=== PATIENT | female | born 1960 | race African-American/Black ===

== ENCOUNTER → 2016-11-30 | Outpatient (CLI) | payer OTHER ==
[2016-07-02 18:36] VITALS: BP 138/72
[2016-11-30 11:12] LABS: CREATININE,URINE 195.79 mg/dL (29-226); MICROALBUMIN,URINE 4.8 mg/L
[2016-11-30 11:14] LABS: HEMOGLOBIN A1C 6.3 % (4.5-6.2)
[2016-11-30 11:14] LABS: BASOPHILS % (AUTO) 0.4 % (0.2-1.0); EOSINOPHILS # (AUTO) 0.1 x10^3/uL (0.0-0.2); EOSINOPHILS % (AUTO) 1.2 % (0.9-2.9); HEMATOCRIT 39.9 % (36.0-47.0); HEMOGLOBIN 13.4 g/dL (12.0-16.0); LYMPHOCYTES # (AUTO) 3.7 X10^3/uL (1.3-2.9); MEAN CORPUSCULAR HEMOGLOBIN 27.5 pg (27.0-34.0); MEAN CORPUSCULAR HGB CONC 33.5 g/dL (33.0-35.0); MEAN CORPUSCULAR VOLUME 81.9 fL (80.0-100.0); MEAN PLATELET VOLUME 9.3 fL (7.4-11.0); MONOCYTES # (AUTO) 0.5 x10^3/uL (0.3-0.8); MONOCYTES % (AUTO) 7.1 % (0.0-13.0); NEUTROPHILS # (AUTO) 2.6 x10^3/uL (2.2-4.8); NEUTROPHILS % (AUTO) 37.3 % (42.0-75.0); PLATELET COUNT 210 X10^3/uL (150.0-450.0); RED BLOOD COUNT 4.88 X10^6/uL (3.5-5.4); WHITE BLOOD COUNT 6.9 X10^3/uL (3.6-10.0)
[2016-11-30 11:20] LABS: ALANINE AMINOTRANSFERASE 15 Units/L (12-78); ALBUMIN 3.2 g/dL (3.4-5.0); ALKALINE PHOSPHATASE 64 Units/L (46-116); ASPARTATE AMINO TRANSFERASE 14 Units/L (15-37); BLOOD UREA NITROGEN 7 mg/dL (7-18); CALCIUM 8.3 mg/dL (8.5-10.1); CARBON DIOXIDE 26.6 mmol/L (21-32); CHLORIDE 109 mmol/L (98-107); COR CA(FOR HYPOALB) 8.9 mg/dL (8.5-10.1); CREATININE 0.81 mg/dL (0.55-1.02); FREE T4 (FREE THYROXINE) 0.99 ng/dL (0.76-1.46); GLUCOSE 100 mg/dL (65-99); SODIUM 143 mmol/L (136-145); TOTAL PROTEIN 6.8 g/dL (6.4-8.2); TSH (3RD GENERATION) 4.029 uIU/mL (0.358-3.74); eGFR BLACK RACES > 60 (>60); eGFR NON BLACK RACES > 60 (>60)
[2016-11-30 11:44] LABS: CKMB % 1.3 % (<4); CREATINE KINASE 79 Units/L (26-192); CREATINE KINASE MB < 1.0 ng/mL (0-4.0); TROPONIN I < 0.02 ng/mL (0-1.5)
--- NOTE | 2016-11-30 12:23 | RAD ---
HISTORY: Left-sided chest pain Study: PA and lateral views of the chest Comparison: 11/30/2016 Findings: The lungs are clear. No consolidation. There are no pleural effusions. The perfecto and cardiomediastinal silhouette appear normal. IMPRESSION: 1. No radiographic evidence of an acute cardiopulmonary process. Reported By:
== END ==
LOC: LAB 10:23
PROVIDERS: ATTEND Nurse Practitioner Family
DX: I10 Essential (primary) hypertension (principal); E11.21 Type 2 diabetes mellitus with diabetic nephropathy; E03.8 Other specified hypothyroidism; R07.89 Other chest pain
CPT/HCPCS: 36415; 71020; 80053; 82043; 82550; 82552; 82553; 83036; 84439; 84443; 84481; 84484; 85025

== ENCOUNTER → 2016-12-13 | Outpatient (CLI) | payer OTHER ==
[2016-07-02 18:36] VITALS: BP 138/72
== END ==
LOC: LAB 14:15
PROVIDERS: ATTEND Nurse Practitioner Family
DX: E87.6 Hypokalemia (principal)
CPT/HCPCS: 36415; 84132

== ENCOUNTER → 2017-01-15 | Outpatient (CLI) | payer OTHER ==
[2016-07-02 18:36] VITALS: BP 138/72
[2017-01-15 08:06] LABS: BASOPHILS # (AUTO) 0.1 X10^3/uL (0.0-0.1); BASOPHILS % (AUTO) 0.9 % (0.2-1.0); EOSINOPHILS # (AUTO) 0.1 x10^3/uL (0.0-0.2); EOSINOPHILS % (AUTO) 1.1 % (0.9-2.9); HEMATOCRIT 41.6 % (36.0-47.0); HEMOGLOBIN 13.7 g/dL (12.0-16.0); LYMPHOCYTES # (AUTO) 3.3 X10^3/uL (1.3-2.9); MEAN CORPUSCULAR HEMOGLOBIN 27.2 pg (27.0-34.0); MEAN CORPUSCULAR HGB CONC 32.9 g/dL (33.0-35.0); MEAN CORPUSCULAR VOLUME 82.7 fL (80.0-100.0); MEAN PLATELET VOLUME 9.2 fL (7.4-11.0); MONOCYTES # (AUTO) 0.5 x10^3/uL (0.3-0.8); MONOCYTES % (AUTO) 7.6 % (0.0-13.0); NEUTROPHILS # (AUTO) 2.7 x10^3/uL (2.2-4.8); NEUTROPHILS % (AUTO) 40.4 % (42.0-75.0); PLATELET COUNT 225 X10^3/uL (150.0-450.0); RED BLOOD COUNT 5.03 X10^6/uL (3.5-5.4); RED CELL DISTRIBUTION WIDTH 13.9 % (11.6-16.5); WHITE BLOOD COUNT 6.6 X10^3/uL (3.6-10.0)
[2017-01-15 08:27] LABS: ALANINE AMINOTRANSFERASE 17 Units/L (12-78); ALBUMIN 3.3 g/dL (3.4-5.0); ALKALINE PHOSPHATASE 68 Units/L (46-116); ASPARTATE AMINO TRANSFERASE 16 Units/L (15-37); BLOOD UREA NITROGEN 9 mg/dL (7-18); CALCIUM 8.2 mg/dL (8.5-10.1); CARBON DIOXIDE 28.1 mmol/L (21-32); CHLORIDE 107 mmol/L (98-107); COR CA(FOR HYPOALB) 8.8 mg/dL (8.5-10.1); CREATININE 0.81 mg/dL (0.55-1.02); FREE T4 (FREE THYROXINE) 0.99 ng/dL (0.76-1.46); GLUCOSE 101 mg/dL (65-99); SODIUM 141 mmol/L (136-145); TOTAL PROTEIN 6.9 g/dL (6.4-8.2); TSH (3RD GENERATION) 3.273 uIU/mL (0.358-3.74); eGFR BLACK RACES > 60 (>60); eGFR NON BLACK RACES > 60 (>60)
[2017-01-15 08:42] LABS: ERYTHROCYTE SEDIMENTATION RATE 7 MM/HOUR (0-20)
== END ==
LOC: LAB 07:41
PROVIDERS: ATTEND Nurse Practitioner Family
DX: E03.8 Other specified hypothyroidism (principal); I10 Essential (primary) hypertension; R22.1 Localized swelling, mass and lump, neck
CPT/HCPCS: 36415; 80053; 84439; 84443; 84481; 85025; 85652; 86140

== ENCOUNTER → 2017-01-16 | Outpatient (CLI) | payer OTHER ==
[2016-07-02 18:36] VITALS: BP 138/72
== END ==
LOC: LAB 08:59
PROVIDERS: ATTEND Internal Medicine Gastroenterology
DX: K59.1 Functional diarrhea (principal); B96.81 Helicobacter pylori [H. pylori] as the cause of diseases classified elsewhere
CPT/HCPCS: 87338

== ENCOUNTER → 2017-01-29 | Outpatient (CLI) | payer OTHER ==
[2016-07-02 18:36] VITALS: BP 138/72
--- NOTE | 2017-01-29 10:10 | US ---
HISTORY: Neck mass Study: Thyroid sonogram Comparison: None Technique: Multiple grayscale sonographic images were obtained. Findings: The right lobe measured 3.5 x 1.9 x 1.7 centimeters, the isthmus 2.7 millimeters, and the left lobe 3 .7 by 1.5 x 1 centimeter. Multiple bilateral sub 0.5 centimeter cysts and nodules are present. There are no dominant nodules. No masses are identified. IMPRESSION: Multiple bilateral sub 0.5 centimeter thyroid cysts and nodules which do not meet the criteria for fi ne needle aspiration Reported By:
== END | disposition home or self-care (01) | DRG 607 ==
LOC: RAD 09:07
PROVIDERS: ATTEND Nurse Practitioner Family
DX: R22.1 Localized swelling, mass and lump, neck (principal); E04.2 Nontoxic multinodular goiter
CPT/HCPCS: 76536

== ENCOUNTER → 2017-05-13 | Outpatient (CLI) | payer OTHER ==
[2016-07-02 18:36] VITALS: BP 138/72
[2017-05-13 08:15] LABS: BASOPHILS # (AUTO) 0.1 X10^3/uL (0.0-0.1); BASOPHILS % (AUTO) 0.9 % (0.2-1.0); EOSINOPHILS # (AUTO) 0.1 x10^3/uL (0.0-0.2); HEMATOCRIT 42.6 % (36.0-47.0); HEMOGLOBIN 14.2 g/dL (12.0-16.0); LYMPHOCYTES # (AUTO) 3.5 X10^3/uL (1.3-2.9); LYMPHOCYTES % (AUTO) 47.5 % (21.0-51.0); MEAN CORPUSCULAR HEMOGLOBIN 27.2 pg (27.0-34.0); MEAN CORPUSCULAR HGB CONC 33.4 g/dL (33.0-35.0); MEAN CORPUSCULAR VOLUME 81.4 fL (80.0-100.0); MEAN PLATELET VOLUME 9.1 fL (7.4-11.0); MONOCYTES # (AUTO) 0.6 x10^3/uL (0.3-0.8); MONOCYTES % (AUTO) 8.6 % (0.0-13.0); NEUTROPHILS # (AUTO) 3.1 x10^3/uL (2.2-4.8); PLATELET COUNT 248 X10^3/uL (150.0-450.0); RED BLOOD COUNT 5.23 X10^6/uL (3.5-5.4); RED CELL DISTRIBUTION WIDTH 13.8 % (11.6-16.5); WHITE BLOOD COUNT 7.3 X10^3/uL (3.6-10.0)
[2017-05-13 08:19] LABS: HEMOGLOBIN A1C 5.4 % (4.5-6.2)
[2017-05-13 08:31] LABS: MICROALBUMIN,URINE 13.4 mg/L
[2017-05-13 08:54] LABS: CREATININE,URINE 402.27 mg/dL (29-226)
[2017-05-13 09:14] LABS: ALANINE AMINOTRANSFERASE 17 Units/L (12-78); ALBUMIN 3.6 g/dL (3.4-5.0); ALKALINE PHOSPHATASE 74 Units/L (46-116); ASPARTATE AMINO TRANSFERASE 14 Units/L (15-37); BLOOD UREA NITROGEN 13 mg/dL (7-18); CALCIUM 8.9 mg/dL (8.5-10.1); CARBON DIOXIDE 24.3 mmol/L (21-32); CHLORIDE 107 mmol/L (98-107); CHOL/HDL RATIO 4.4 (0.0-5.0); CHOLESTEROL 200 mg/dL (0-200); CREATININE 0.86 mg/dL (0.55-1.02); FREE T4 (FREE THYROXINE) 1.01 ng/dL (0.76-1.46); HDL CHOLESTEROL 45 mg/dL (40-60); SODIUM 143 mmol/L (136-145); TOTAL PROTEIN 7.3 g/dL (6.4-8.2); TRIGLYCERIDES 106 mg/dL (0-150); TSH (3RD GENERATION) 4.289 uIU/mL (0.358-3.74); eGFR BLACK RACES > 60 (>60); eGFR NON BLACK RACES > 60 (>60)
== END ==
LOC: LAB 07:52
PROVIDERS: ATTEND Nurse Practitioner Family
DX: E03.8 Other specified hypothyroidism (principal); E11.21 Type 2 diabetes mellitus with diabetic nephropathy
CPT/HCPCS: 36415; 80053; 80061; 82043; 83036; 84439; 84443; 84481; 85025

== ENCOUNTER 2017-06-22 02:02 | Emergency (ER) | payer OTHER ==
[2017-06-22 02:14] VITALS: BMI 32.2
[2017-06-22] MEDS ORDERED: NORFLEX INJ ONE (02:36)
[2017-06-22] MEDS ORDERED: TORADOL 60 MG VIAL ONE (02:36)
[2017-06-22] MEDS ORDERED: TORADOL 60 MG VIAL IM ONE (02:37)
[2017-06-22] MEDS ORDERED: NORFLEX INJ IM ONE (02:37)
--- NOTE | 2017-06-22 02:37 | DR.FBACK ---
HPI - Time Seen Time seen: 02:25 - PCP Primary Care Physician: KATHLEEN HAYNES - HPI Comment HPI Comment: PAIN STARTED YESTERDAY AND GOT WORSE TONIGHT. PAIN LEFT FLANK AREA. NO DYSURIA OR HEMATURIA. HISTORY LUMBER DISC DISEASE WITH COMPREESIVE AREA AROUND L4. NO RECENT TRAUMA OR LIFTING. - Complaint Chief Complaint Doctor Comments: LOWER BACK PAIN. Chief Complaint:: "STARTED HURTING IN MY LOWER BACK AND IT COMES AROUND TO MY LOWER STOMACH." PT POINTING TO LEFT SIDE. PATIENT DENIES ANY HEMATURIA. - Reviewed Nurses Notes Review: Yes - Source History Provided: Patient, EMS - Mode of Arrival Mode of Arrival: EMS - Timing Onset of Chief Complaint: 06/21/17 - Duration Duration: Constant Duration: Days - Location Back Pain Location: Left, Lower, BACK, Lumbar Radiation To: Left, Thigh - Severity Severity: Moderate - Quality Quality: Aching, Sharp - Context Onset: Spontaneous Circumstance: Spontaneous - Modifying Factors Worsened By: Movement, Twisting, Breathing, Walking - Associated Signs and Symptoms Back Pain Symptoms: Nausea PMH - PMH Past Medical History: Yes Past Medical History: Dyslipidemia, GERD, Hypertension, Hypothyroidism Past Surgical History: Yes Surgical History: Appendectomy, Hysterectomy, Ortho Surgery Past Surgical History Comment: LEFT KNEE, RIGHT FOOT. LUMPECTOMY - Family History History of Family Medical Conditions: Yes Family Medical History: Cancer, Hypertension - Social History Type of Tobacco Use: Cigarettes Alcohol Use: None Do you use any recreational Drugs:: No Lives With: Family Lives Where: Home - infectious screening Have you traveled outside the country in the last 6 months?: No Isolation: Standard ROS - Review of Systems Constitutional: No Symptoms Reported Eyes: No Symptoms Reported ENTM: No Symptoms Reported Respiratoy: No Symptoms Reported Cardiovascular: No Symptoms Reported Gastrointestinal/Abdominal: No Symptoms Reported Genitourinary: No Symptoms Reported. negative: Dysuria, Frequency, Hematuria Neurological: Tingling Musculoskeletal: Back Pain, Muscle Pain, Back Integumentary: No Symptoms Reported Hematologic/Lymphatic: No Symptoms Reported Endocrine: No Symptoms Reported All Other Systems: Reviewed and Negative PE - Vitals Vital Signs: Temp Pulse Pulse Resp BP BP BP 06/22/17 04:16 58 L 18 134/61 06/22/17 03:55 83 18 134/61 06/22/17 02:35 18 101/71 06/22/17 02:09 97.0 F L 72 18 136/63 01/30/17 18:35 138/72 138/72 06/16/14 08:00 109/52 Pulse Ox 06/22/17 04:16 98 06/22/17 03:55 99 06/22/17 02:35 06/22/17 02:09 95 07/02/16 18:35 06/16/14 08:00 - General Limitations: No Limitations General Appearance: Alert - Head Head Exam: Normal Inspection - Eyes Eye exam: Normal Appearance - ENT ENT Exam: Normal External Ear Exam - Chest Chest Inspection: Symmetric Chest Wall Rise - Respiratory Respiratory Exam: Normal Lung Sounds Bilat Respiratory Exam: Bilateral Clear to Auscultation - Abdominal Exam Abdominal Exam: Normal Bowel Sounds, Soft. negative: Tenderness - Genitourinary External Exam: Female: Deferred : Speculum Exam (Female): Deferred : Bimanual Exam (female): Deferred - Extremities Extremities Exam: Normal Inspection - Back Back Exam: (L) CVA Tenderness, Muscle Spasm, Paraspinal Tenderness - Neurological Neurological Exam: Alert, Oriented X3 - Psychiatric Psychiatric Exam: Anxious - Skin Skin Exam: Normal Color MDM - Additional Information Additional Information Obtained From: Family - Differential Diagnosis Differential Diagnosis: DJD, Musculoskeletal Pain, Strain Course - Treatment Treatment: SEE ORDERS. IM TORADOL AND NORFLEX, PAIN IMPROVING. - Education/Counseling Education/Counseling: Patient, Family, Education Educated On: Treatment, Diagnosis, Needs for Follow Up ROR - Labs Reviewed Laboratory: Specimen Type Clean catch urine 06/22/17 02:28 Urine Color Yellow (YELLOW) 06/22/17 02:28 Urine Appearance Clear (CLEAR) 06/22/17 02:28 Urine pH 5.0 (5.0 - 8.0) 06/22/17 02:28 Ur Specific [place] 1.025 (1.000-1.030) 06/22/17 02:28 Urine Protein 1+ (NEGATIVE) 06/22/17 02:28 Urine Glucose (UA) Negative (NEGATIVE) 06/22/17 02:28 Urine Ketones 1+ (NEGATIVE) 06/22/17 02:28 Urine Occult Blood 2+ (NEGATIVE) 06/22/17 02:28 Urine Nitrite Negative (NEGATIVE) 06/22/17 02:28 Urine Bilirubin Negative (NEGATIVE) 06/22/17 02:28 Urine Urobilinogen 1+ (NORMAL) 06/22/17 02:28 Ur Leukocyte Esterase 1+ (NEGATIVE) 06/22/17 02:28 Urine RBC 2-4 /HPF (NEGATIVE) 06/22/17 02:28 Urine WBC 0-2 /HPF (NEGATIVE) 06/22/17 02:28 Ur Squamous Epith Cells Rare /HPF (NEGATIVE) 06/22/17 02:28 Calcium Oxalate Crystal Few /HPF (NEGATIVE) 06/22/17 02:28 Urine Bacteria Negative /HPF (NEGATIVE) 06/22/17 02:28 Urine Mucus Moderate /HPF (NEGATIVE) 06/22/17 02:28 Ur Culture Indicated? No/not indicated 06/22/17 02:28 - XRAY XRAY Interpreted by: Radiologist XRAY Findings: REPORT DISCUSS WITH PATIENT. CT SIMILAR TO PREVIOUS MRI. - Diagnosis Discharge Problem: Bulging lumbar disc Back pain Qualifiers: Back pain location: low back pain Chronicity: acute Back pain laterality: left Sciatica presence: with sciatica Sciatica laterality: sciatica of left side Qualified Code(s): M54.42 - Lumbago with sciatica, left side - Discharge Plan Disposition: 01 HOME, SELF-CARE Condition: Stable - Follow ups/Referrals Follow ups/Referrals: NFD,None [Primary Care Provider] - 3 days - Instructions Instructions: Back Pain, Adult, Fuye-nd-Erep Additional Instructions: RETURN TO ED IF WORSE. CONTINUE HOME MEDS.
[2017-06-22 02:42] LABS: BILIRUBIN,URINE NEGATIVE (NEGATIVE); BLOOD/HEMOGLOBIN,URINE 2+ (NEGATIVE); GLUCOSE, URINE NEGATIVE (NEGATIVE); KETONES,URINE 1+ (NEGATIVE); LEUKOCYTE ESTERASE ,URINE 1+ (NEGATIVE); NITRITES,URINE NEGATIVE (NEGATIVE); PROTEIN,URINE 1+ (NEGATIVE); UROBILINOGEN,URINE 1+ (NORMAL)
[2017-06-22 03:03] LABS: APPEARANCE,URINE CLEAR (CLEAR); BACTERIA,URINE NEGATIVE /HPF (NEGATIVE); CALCIUM OXALATE CRYSTALS,UR FEW /HPF (NEGATIVE); COLOR,URINE YELLOW (YELLOW); MUCUS,URINE MODERATE /HPF (NEGATIVE); SQUAMOUS EPITHELIAL CELL,UR RARE /HPF (NEGATIVE)
--- NOTE | 2017-06-22 03:26 | CT ---
CT lumbar spine without contrast Indication: Lower back pain without trauma Technique: Helical CT images of the lumbar spine were obtained without IV contrast. Reformatted image s in the coronal and sagittal planes were also generated for review. Comparison: MRI 05/10/2015 Findings: Vertebral body heights and alignment are normal. No acute fracture or subluxation is identi fied. There is very mild multilevel facet arthropathy, most significant caudally. There is a mildly p rominent broad-based posterior disc bulge at L4-L5 which results in mild canal stenosis. Within the l imitations of a noncontrast CT, no additional significant compressive disc disease is identified at a ny level. The visualized SI joints are normal. Mild vascular calcifications are noted. The remaining unenhanced paraspinal soft tissues are grossly unremarkable. Impression: Mild multilevel facet arthropathy and mild broad-based posterior disc bulge at L4-L5, which results i n mild canal stenosis. If clinically warranted, consider MRI for further evaluation. Reported By:
[2017-06-22 03:56] VITALS: BP 134/61
== END 2017-06-22 04:17 | disposition home or self-care (01) ==
LOC: ER 02:02
DX: M51.26 Other intervertebral disc displacement, lumbar region (principal); M54.42 Lumbago with sciatica, left side
CPT/HCPCS: 72131; 81001; 96372; 99283; 99284; J1885; J2360

== ENCOUNTER → 2017-06-24 | Outpatient (CLI) | payer OTHER ==
[2016-07-02 18:36] VITALS: BP 138/72
--- NOTE | 2017-06-24 11:55 | MG ---
HISTORY: SCREENING Comparison: 06/19/2016 FINDINGS: Bilateral CC and MLO projections of the right and left breast were obtained. Scattered fibroglandula r tissue is seen to be present. No significant architectural distortion, mass or clustered microcalc ifications can be observed to suggest malignancy. No skin thickening or nipple retraction is appreci ated. No pathological lymphadenopathy can be identified. IMPRESSION: NO RADIOGRAPHIC EVIDENCE OF MALIGNANCY. ACR CATEGORY: 1 - NEGATIVE EXAM. FOLLOW-UP EXAM 1 YEAR. Diagnostic CAD was utilized and reviewed. * 0 (ZERO) - ASSESSMENT INCOMPLETE; ADDITIONAL IMAGING IS NEEDED. * 1/1 (ONE) - NEGATIVE. * 2/II (TWO) - BENIGN FINDINGS. * 3/III (THREE) - PROBABLY BENIGN FINDING; SHORT INTERVAL FOLLOW-UP SUGGESTED. * 4/IV (FOUR) - SUSPICIOUS ABNORMALITY; BIOPSY SHOULD BE CONSIDERED. * 5/V - HIGHLY SUSPICIOUS OF MALIGNANCY; BIOPSY SHOULD BE PERFORMED. A NEGATIVE X-RAY REPORT SHOULD NOT DELAY BIOPSY IF A DOMINANT OR CLINICALLY SUSPICIOUS MASS IS PRESENT; 4 TO 8 PERCENT OF CANCERS ARE NOT IDENTIFIED BY X-RAY. A NEGA TIVE REPORT MAY REINFORCE THE CLINICAL IMPRESSION. ADENOSIS AND DENSE BREASTS MAY OBSCURE AN UNDERLY ING NEOPLASM. Reported By:
== END ==
LOC: RAD 08:03
PROVIDERS: ATTEND Nurse Practitioner Family
DX: Z12.31 Encounter for screening mammogram for malignant neoplasm of breast (principal)
CPT/HCPCS: 77067

== ENCOUNTER → 2017-08-03 | Outpatient (CLI) | payer OTHER ==
[2017-08-03 09:52] LABS: T4 (THYROXINE) 8.7 ug/dL (4.7-13.3); TSH (3RD GENERATION) 2.149 uIU/mL (0.358-3.74)
== END ==
LOC: LAB 08:41
PROVIDERS: ATTEND Psychiatry & Neurology Neurology
DX: E03.8 Other specified hypothyroidism (principal)
CPT/HCPCS: 36415; 84436; 84443; 84480

== ENCOUNTER → 2017-08-09 | Outpatient (CLI) | payer OTHER ==
--- NOTE | 2017-08-09 12:14 | US ---
History: Thyroid nodule Exam: Thyroid ultrasound Comparison: 01/29/2017 Technique: Multiple grayscale and color flow Doppler images of the thyroid gland were obtained. Findings: The right lobe measures 4.4 x 1.5 x 2 cm. The left lobe measures 3.7 x 1 x 1.7 cm. There is mild hete rogeneity throughout both lobes . There are small 3 mm cyst along the lower pole both lobes which are unchanged. There is a 6 x 3 mm hypoechoic nodule along the upper pole posteriorly on the right and t here is a smaller 3 mm nodule along the mid polar region . There is an very ill-defined 11 x 8 mm hyp oechoic nodule along the lower pole posteriorly on the right which measured 8 x 5 mm previously. The margins are ill-defined. The isthmus measures 4 mm. IMPRESSION: Mild multinodular goiter with an 11 mm hypoechoic solid nodule inferiorly on the right which may have slightly enlarged but is ill-defined. Suggest continued follow-up to assure stability . Reported By:
== END ==
LOC: RAD 11:00
PROVIDERS: ATTEND Nurse Practitioner Family
DX: E04.1 Nontoxic single thyroid nodule (principal)
CPT/HCPCS: 76536

== ENCOUNTER 2017-08-29 07:18 | Day surgery (SDC) | payer OTHER ==
[2017-08-29] MEDS ORDERED: D5 LR 1000 ML 1,000 ML IV ONE (07:23)
[2017-08-29] MEDS ORDERED: DIPRIVAN VIAL 20 ML ONE (09:01)
[2017-08-29 09:32] VITALS: BP 132/62
== END 2017-08-29 09:35 | disposition home or self-care (01) ==
LOC: SURG1 07:18
PROVIDERS: ATTEND Internal Medicine Gastroenterology
PROC: 0DJD8ZZ Inspection of Lower Intestinal Tract, Via Natural or Artificial Opening Endoscopic (ICD-10-PCS; principal; 2017-08-29 08:30)
PROC: 0DBP8ZX Excision of Rectum, Via Natural or Artificial Opening Endoscopic, Diagnostic (ICD-10-PCS; principal; 2017-08-29 08:30)
DX: Z12.11 Encounter for screening for malignant neoplasm of colon (principal); K63.5 Polyp of colon; K57.30 Diverticulosis of large intestine without perforation or abscess without bleeding; K64.0 First degree hemorrhoids; Z86.010 Personal history of colon polyps
CPT/HCPCS: A4217; J3490; J7120

== ENCOUNTER → 2017-09-13 | Outpatient (CLI) | payer OTHER ==
[2017-08-29 09:32] VITALS: BP 132/62
[2017-09-13 08:49] LABS: BASOPHILS # (AUTO) 0.1 X10^3/uL (0.0-0.1); BASOPHILS % (AUTO) 1.2 % (0.2-1.0); EOSINOPHILS % (AUTO) 0.6 % (0.9-2.9); HEMATOCRIT 41.8 % (36.0-47.0); HEMOGLOBIN 13.9 g/dL (12.0-16.0); LYMPHOCYTES # (AUTO) 3.2 X10^3/uL (1.3-2.9); LYMPHOCYTES % (AUTO) 40.9 % (21.0-51.0); MEAN CORPUSCULAR HEMOGLOBIN 27.5 pg (27.0-34.0); MEAN CORPUSCULAR HGB CONC 33.3 g/dL (33.0-35.0); MEAN CORPUSCULAR VOLUME 82.6 fL (80.0-100.0); MEAN PLATELET VOLUME 8.8 fL (7.4-11.0); MONOCYTES # (AUTO) 0.6 x10^3/uL (0.3-0.8); MONOCYTES % (AUTO) 7.6 % (0.0-13.0); NEUTROPHILS # (AUTO) 3.9 x10^3/uL (2.2-4.8); NEUTROPHILS % (AUTO) 49.7 % (42.0-75.0); PLATELET COUNT 245 X10^3/uL (150.0-450.0); RED BLOOD COUNT 5.07 X10^6/uL (3.5-5.4); RED CELL DISTRIBUTION WIDTH 13.9 % (11.6-16.5); WHITE BLOOD COUNT 7.8 X10^3/uL (3.6-10.0)
[2017-09-13 09:23] LABS: CREATININE,URINE 172.39 mg/dL (29-226); MICROALBUMIN,URINE 4.4 mg/L
[2017-09-13 09:28] LABS: ALANINE AMINOTRANSFERASE 15 Units/L (12-78); ALBUMIN 3.3 g/dL (3.4-5.0); ALKALINE PHOSPHATASE 75 Units/L (46-116); ASPARTATE AMINO TRANSFERASE 13 Units/L (15-37); BLOOD UREA NITROGEN 15 mg/dL (7-18); CALCIUM 8.9 mg/dL (8.5-10.1); CARBON DIOXIDE 27.5 mmol/L (21-32); CHLORIDE 109 mmol/L (98-107); CHOL/HDL RATIO 4.2 (0.0-5.0); CHOLESTEROL 203 mg/dL (0-200); COR CA(FOR HYPOALB) 9.5 mg/dL (8.5-10.1); CREATININE 0.88 mg/dL (0.55-1.02); HDL CHOLESTEROL 48 mg/dL (40-60); SODIUM 144 mmol/L (136-145); TOTAL PROTEIN 7.2 g/dL (6.4-8.2); TRIGLYCERIDES 69 mg/dL (0-150); TSH (3RD GENERATION) 3.776 uIU/mL (0.358-3.74); eGFR BLACK RACES > 60 (>60); eGFR NON BLACK RACES > 60 (>60)
== END ==
LOC: LAB 08:28
PROVIDERS: ATTEND Nurse Practitioner Family
DX: E11.9 Type 2 diabetes mellitus without complications (principal); M85.88 Other specified disorders of bone density and structure, other site; I10 Essential (primary) hypertension; E78.4 Other hyperlipidemia; E03.8 Other specified hypothyroidism
CPT/HCPCS: 36415; 80053; 80061; 82043; 82306; 84443; 85025

== ENCOUNTER → 2017-09-25 | Outpatient (CLI) | payer OTHER ==
[2017-08-29 09:32] VITALS: BP 132/62
--- NOTE | 2017-09-25 09:16 | RAD ---
HISTORY: Low back pain. No history of trauma. Study: AP and lateral lumbar spine Comparison: 04/06/2015 CT scan 06/22/2017 Findings: Five lumbar type vertebra are present. Spina bifida occulta is noted at T12, unchanged. Mild facet arthropathy is noted at L3/L4 with moderate at L4/L5 and L5/S1. The lateral view demonstrates normal curvature. Mild disc space narrowing is present at L5/S1. Minimal anterior spurring is present at several levels. There is a radiopaque foreign body projected within the fatty tissues of the right g luteal region measuring approximately 3 cm in length by 8 mm in width. This appears to be soft tissu e calcification and it is unchanged. IMPRESSION: 1. Lumbar spondylosis as described above. 2. No significant change is noted when compared to the prior examination. 3. No acute bony abnormalities are identified. Reported By:
--- NOTE | 2017-09-25 09:16 | RAD ---
HISTORY: Neck and low back pain, chronic but no trauma. Study: Three-view cervical spine Comparison: 02/10/2012 Findings: No fracture or subluxation is seen. There is again narrowing of the disc space at C5-6 with marginal spondylosis. Odontoid is unremarkable. IMPRESSION: Degenerative disc disease again seen at C5-6 with marginal spondylosis. No fracture or subluxation is seen. Reported By:
== END | disposition home or self-care (01) | DRG 552 ==
LOC: RAD 08:46
PROVIDERS: ATTEND Nurse Practitioner Family
DX: M54.5 Low back pain (principal); M50.322 Other cervical disc degeneration at C5-C6 level; M47.892 Other spondylosis, cervical region; M47.896 Other spondylosis, lumbar region
CPT/HCPCS: 72040; 72100

== ENCOUNTER → 2017-09-26 | Outpatient (CLI) | payer OTHER ==
[2017-08-29 09:32] VITALS: BP 132/62
--- NOTE | 2017-09-26 16:22 | MRI ---
HISTORY: Low back pain Study: MRI lumbar spine without contrast Comparison: CT lumbar spine performed on 06/22/2017 and MRI performed on 05/10/2015 Technique: Multiplanar multi-sequence MRI of the lumbar spine was obtained. Sagittal T1, sagittal T2 , and stir weighted images, axial T1, and axial T2 images were obtained. Findings: Imaging of the lumbar spine demonstrates normal vertebral alignment. There is no spondylolisthesis. V ertebral body height is maintained throughout. No acute or chronic compression fracture is visualized . Disc space height is maintained throughout. There are minimal degenerative endplate changes anterio rly at multiple levels within the lumbar spine. Within the left L5 pedicle there is very mild reactiv e edema due to adjacent advanced facet arthropathy. The conus terminates at the L2 level. Evaluation of the pre and paravertebral soft tissues is unremarkable. Incidental note is made of multiple hepati c cysts. T12 -- L1: The T12-L1 level is unremarkable. L1 -- L2: At the L1-L2 level there is facet hypertrophy without significant canal stenosis or neurofo raminal compromise. L2 -- L3: At the L2-L3 level there is facet hypertrophy and ligamentum flavum thickening, resulting i n no significant canal stenosis or neuroforaminal compromise. L3 -- L4: At the L3-L4 level there is advanced facet hypertrophy and ligamentum flavum thickening, re sulting in no significant canal stenosis or neuroforaminal compromise. L4 -- L5: At the L4-L5 level there is advanced facet hypertrophy and ligamentum flavum thickening as well as broad-based disc ridging, resulting in mild canal stenosis as well as mild bilateral neurofor aminal compromise. L5 -- S1: At the L5-S1 level there is advanced facet hypertrophy without significant canal stenosis o r neuroforaminal compromise. IMPRESSION: 1. Multilevel advanced facet hypertrophy and minimal degenerative disc disease as detailed above, mos t significant at the L4-L5 level, where there is mild canal stenosis as well as mild bilateral neurof oraminal compromise. Reported By:
--- NOTE | 2017-09-30 08:49 | MRI ---
HISTORY: Neck pain Study: MRI cervical spine without contrast Comparison: Cervical radiographs performed on 09/25/2017 Technique: Multiplanar multisequence MRI of the cervical spine was obtained utilizing standard [facility] mental protocol. Findings: Imaging of the cervical spine demonstrates loss of the normal cervical lordosis which is likely secon sabino to patient positioning and/or muscle spasm. There is very mild, grade 1, anterolisthesis of C4 o n C5, likely secondary to facet arthropathy and degenerative disc disease at this level. Moderate los s of disc space height is evident at the C5-C6 level with associated advanced degenerative endplate c hange. There is also minimal reactive edema posteriorly at the C5-C6 level secondary to degenerative endplate change. Cervical cord signal is normal throughout. Evaluation of the pre and paravertebral s oft tissues is unremarkable. The visualized posterior fossa is grossly unremarkable as well. C2 -- C3: The C2-C3 level is unremarkable. C3 -- C4: At the C3-C4 level there is mild facet hypertrophy and minimal uncovertebral spurring witho ut significant canal stenosis or neuroforaminal compromise. C4 -- C5: At the C4-C5 level there is a mild broad-based disc osteophyte complex as well as left unco vertebral spurring and facet hypertrophy, resulting in no significant canal stenosis or neuroforamina l compromise. C5 -- C6: At the C5-C6 level there is a broad-based disc osteophyte complex as well as uncovertebral spurring and minimal facet hypertrophy, resulting in minimal bilateral neuroforaminal compromise but no significant canal stenosis. C6 -- C7: At the C6-C7 level there is minimal uncovertebral spurring without significant canal stenos is or neuroforaminal compromise. C7 -- T1: At the C7-T1 level there is very mild facet hypertrophy without significant canal stenosis or neuroforaminal compromise. IMPRESSION: 1. Multilevel mild degenerative disc disease and facet arthropathy as detailed above, most significan t at the C5-C6 level, there is minimal bilateral neuroforaminal compromise. Reported By:
== END ==
LOC: RAD 13:29
PROVIDERS: ATTEND Nurse Practitioner Family
DX: M54.5 Low back pain (principal); M51.36 Other intervertebral disc degeneration, lumbar region; M50.322 Other cervical disc degeneration at C5-C6 level; R20.2 Paresthesia of skin
CPT/HCPCS: 72141; 72148

== ENCOUNTER → 2017-10-07 | Outpatient (CLI) | payer OTHER | END | disposition home or self-care (01) | DRG 93 | LOC: RT 09:27 | PROVIDERS: ATTEND Nurse Practitioner Family | DX: R20.0 Anesthesia of skin (principal); R20.2 Paresthesia of skin | CPT/HCPCS: 95910; 95911 ==

== ENCOUNTER 2019-02-07 03:06 | Observation (INO) ==
[2019-02-07] MEDS ORDERED: TORADOL 60 MG VIAL IM ONE (04:40)
[2019-02-07] MEDS ORDERED: PROTONIX TAB 40 MG PO ONE (04:40)
[2019-02-07] MEDS ORDERED: LEVSIN/MAALOX/LIDOC VISC PO ONE (04:40)
--- NOTE | 2019-02-07 04:49 | DR.EXTPAIN ---
HPI - Time seen Time seen: 04:38 - PCP Primary Care Physician: GRACIELA - Complaint/Symptoms Chief Complaint Doctor Comments: Patient states she has been having epigastric pain that radiates to the RUQ and to her back with burning for the past month. States she has gone to the emergency room in [place] four times and they told her she had gall stones and to see a surgeon. States she has contacted her doctor, Dr. Sebastian and she was suppose to set her up an appointment with a surgeon but she has not called her back. States she talked with her doctor yesterday about her surgery appointment but they have not made one yet. She she has progblems when she eats and gets full quickly with nausea and had episode of vomiting last week but none recently. States she has had an endoscope and they told her she had an ulcer and she is taking ulcer medicines but she do not know the name of the medicines. She is suppose to be on a special diet. She smokes 1/2 pack cigarettes daily but denies alcohol or drug usage. She denies diarrhea, constipation or guy. States the pain is 10 of 10 at times but presently it is 4 of 10. States the pain is sharp worst in the epigastric area. She denies chest pain or SOB or any recent trauma. Chief Complaint:: " IM HAVING A PROBLEM WITH MY GALLBLADDER IM HURTING IN MY UPPER STOMACH ALL THE WAY AROUND TO MY RIGHT SIDE AND I GOT A BURNING IN MY RIGHT SIDE I DONE BEEN TO THE [facility] AND THEY TOLD ME THERE WAS NOTHING THEY COULD DO FOR IT." - Nurses notes reviewed Nurses Notes Review: Yes - Source History Provided: Patient - Mode of arrival Mode of Arrival: Ambulatory - Timing Onset of Chief Complaint: 02/07/19 - Context History of: None - Associated signs and symptoms Associated Signs and Symptoms: Pain, Abdominal Pain PMH - PMH Past Medical History: Yes Past Medical History: Arthritis, CHF, Diabetes, Dyslipidemia, GERD, Hypertension, Hypothyroidism Past Surgical History: Yes Surgical History: Appendectomy, Hysterectomy, Ortho Surgery - Family History History of Family Medical Conditions: Yes Family Medical History: Cancer, Hypertension - Social History Alcohol Use: None Do you use any recreational Drugs:: No - infectious screening Have you traveled outside the country in the last 6 months?: No ROS - Review of Systems Constitutional: No Symptoms Reported Eyes: No Symptoms Reported ENTM: No Symptoms Reported Respiratoy: No Symptoms Reported. negative: See HPI, Productive Cough, Non- Productive Cough, Moist Cough, Dry Cough, Hacking Cough, Barking Cough, Brassy Cough, Orthopnea, Short of Breath, Stridor, Wheezing, Hemoptysis, Other Cardiovascular: No Symptoms Reported Gastrointestinal/Abdominal: No Symptoms Reported, Abdominal Pain, Nausea. negative: See HPI, Constipation, Diarrhea, Vomiting, Food Intolerance, Other Genitourinary: No Symptoms Reported. negative: See HPI, Discharge, Dysuria, Frequency, Hematuria, Pain, Bleeding, Other Neurological: No Symptoms Reported Musculoskeletal: No Symptoms Reported Integumentary: No Symptoms Reported Hematologic/Lymphatic: No Symptoms Reported. negative: See HPI, Anemia, Blood Clots, Easy Bleeding, Easy Bruising, Swollen Glands, Lymphadenopathy, Other Endocrine: No Symptoms Reported Psychiatric: No Symptoms Reported. negative: See HPI, Anxiety, Depression, Hallucinations, Excessive crying, Suicidal, Other PE - General Limitations: No Limitations General Appearance: Alert, In No Apparent Distress - Head Head Exam: Normal Inspection, Atraumatic, Normocephalic - Eyes Eye exam: Normal Appearance, PERRL, EOMI. negative: Scleral Icterus, Conjunctival Injection, Nystagmus, Miosis, Mydrasis, Periorbital Swelling, Per iorbital Tenderness, Other - ENT ENT Exam: Normal Exam, Normal Oropharynx, Normal External Ear Exam, Mucous Membranes Moist, TM's Normal Bilaterally - Neck Neck Exam: Normal Inspection, Full ROM, Trachea Midline. negative: Tenderness, Meningismus, Lymphadenopathy, Thyromegaly, Other - Chest Chest Inspection: Normal Inspection, Symmetric Chest Wall Rise. negative: Tenderness, Rash, Abscess, Other - Respiratory Respiratory Exam: Normal Lung Sounds Bilat Respiratory Exam: Bilateral Clear to Auscultation - Cardiovascular Cardiovascular Exam: Regular Rate, Normal Rhythm, Irregular Rhythm. negative: Bradycardia, Tachycardia, Normal Heart Sounds, Systolic Murmur, Diastolic M urmur, Rubs, Gallop, Clicks, JVD, +S1, +S2, +S3, +S4, Other - Abdominal Exam Abdominal Exam: Normal Inspection, Normal Bowel Sounds, Soft, Tenderness (epigastric tenderness) Abdominal Tenderness: RUQ, Epigastrium, Moderate - Extremities Extremities Exam: Normal Inspection, Full ROM, Normal Capillary Refill. negative: Tenderness, Edema, Joint Swelling, Calf Tenderness, Other - Upper Extremities Shoulder Exam: Normal Inspection, Full ROM. negative: Tenderness, Swelling, Abrasion, Laceration, Ecchymosis, Deformity, Crepitus, Dislocation, Erythema, Tenderness over AC Joint, Other Arm Exam: Normal Inspection, Full ROM. negative: Tenderness, Swelling, Abrasion, Laceration, Ecchymosis, Deformity, Crepitus, Erythema, Other Elbow Exam: Normal Inspection, Full ROM. negative: Tenderness, Swelling, Abrasi on, Laceration, Ecchymosis, Deformity, Crepitus, Dislocation, Erythema, Effusion, Pain w/ pronation, Pain w/ Spuination, Tenderness over Radial Head, Other Forearm Exam: Normal Inspection, Full ROM Hand Exam: Normal Inspection, Full ROM. negative: Tenderness, Swelling, Abrasion, Laceration, Ecchymosis, Skin Avulsion, Deformity, Crepitus, Erythema, Dislocation, Amputation, Nail Avulsion, Subungual Hematoma, Other Neuromotor Exam: Normal Exam Neurosensory Exam: Normal Exam Hand Tendon Exam: Flexor Digitorium Profundus (Location) (normal) Upper Ext. Vascular Exam: Capillary Refill (normal), Radial Pulse (normal) - Lower Extremities Hip/Pelvis Exam: Normal Inspection, Full ROM Upper Leg Exam: Normal Inspection, Full ROM Knee Exam: Normal Inspection, Full ROM Lower Leg Exam: Normal Inspection, Full ROM Ankle Exam: Normal Inspection, Full ROM Foot/Toe Exam: Normal Inspection, Full ROM Neurovascular/Tendon Exam: Normal Capillary Refill Gait Exam: Observed and Normal - Back Back Exam: Normal Inspection, Full ROM. negative: Tenderness, (R) CVA Tenderness, (L) CVA Tenderness, Muscle Spasm, Paraspinal Tenderness, Vertebral Tenderness, Rashes, (R) Sciatic Notch Tenderness, (L) Sciatic Notch Tendern, (R) Straight Leg Raise, (L) Straight Leg Raise, Other - Neurological Neurological Exam: Alert, Oriented X3, CN II-XII Intact, Normal Gait, Reflexes N ormal - Psychiatric Psychiatric Exam: Normal Affect, Normal Mood - Skin Skin Exam: Warm, Dry, Intact, Normal Color Type of Lesion: negative: Rash, Abscess, Laceration, Foreign Body, Bite/Sting, Abrasion, Other Distribution: negative: Generalized, Involves Palms/Soles, Head, Face, Neck, Thorax, Chest, Back, Abdomen, Genitals, LUE, LLE, RUE, RLE, Other Description: negative: Size, Tenderness, Erythematous, Swelling, Macular, Papular, Vesicular, Blisters, Cofluent, Bullous, Petechial, Purpuric, Urticarial, Crusting, Discharge, Fluctuant, Indurated, Other - Vital Signs Vitals: Temperature 97.9 F Pulse Rate 68 Respiratory Rate 18 Blood Pressure [Left Arm] 152/75 Blood Pressure [Right Arm] 152/75 Blood Pressure 163/80 O2 Sat by Pulse Oximetry 98 Course - Consultation Called: 07:12 Call Returned: 07:12 (Dr. George to admit) - Education/Counseling Education/Counseling: Patient, Family Educated On: Treatment, Diagnosis, Needs for Follow Up ROR - Labs Reviewed Laboratory Results Reviewed?: Yes (All labs and x-ray results reviewed and discussed with pataient) Result Diagrams: 02/07/19 05:00 02/07/19 05:00 - XRAY XRAY Interpreted by: Radiologist (CT abdomen: Dilated gallbladder with gallstones and questionable wall thickening. Acute cholecystitits in not excluded.) - Labs Reviewed Laboratory: WBC 7.7 X10^3/uL (3.6-10.0) 02/07/19 05:00 RBC 4.96 X10^6/uL (3.5-5.4) 02/07/19 05:00 Hgb 14.0 g/dL (12.0-16.0) 02/07/19 05:00 Hct 42.4 % (36.0-47.0) 02/07/19 05:00 MCV 85.4 fL (80.0-100.0) 02/07/19 05:00 MCH 28.2 pg (27.0-34.0) 02/07/19 05:00 MCHC 33.0 g/dL (33.0-35.0) 02/07/19 05:00 RDW 13.6 % (11.6-16.5) 02/07/19 05:00 Plt Count 215 X10^3/uL (150.0-450.0) 02/07/19 05:00 MPV 8.8 fL (7.4-11.0) 02/07/19 05:00 Neut % (Auto) 48.9 % (42.0-75.0) 02/07/19 05:00 Lymph % (Auto) 43.3 % (21.0-51.0) 02/07/19 05:00 [place] % (Auto) 6.7 % (0.0-13.0) 02/07/19 05:00 Eos % (Auto) 0.9 % (0.9-2.9) 02/07/19 05:00 Baso % (Auto) 0.2 % (0.2-1.0) 02/07/19 05:00 Neut # (Auto) 3.7 x10^3/uL (2.2-4.8) 02/07/19 05:00 Lymph # (Auto) 3.3 X10^3/uL (1.3-2.9) H 02/07/19 05:00 [place] # (Auto) 0.5 x10^3/uL (0.3-0.8) 02/07/19 05:00 Eos # (Auto) 0.1 x10^3/uL (0.0-0.2) 02/07/19 05:00 Baso # (Auto) 0.0 X10^3/uL (0.0-0.1) 02/07/19 05:00 Absolute Nucleated RBC 0.0 /100WBC 02/07/19 05:00 Sodium 141 mmol/L (136-145) 02/07/19 05:00 Corrected Sodium TNP 02/07/19 05:00 Potassium 3.7 mmol/L (3.5-5.1) 02/07/19 05:00 Chloride 106 mmol/L (98-107) 02/07/19 05:00 Carbon Dioxide 26.5 mmol/L (21-32) 02/07/19 05:00 BUN 9 mg/dL (7-18) 02/07/19 05:00 Creatinine 0.80 mg/dL (0.55-1.02) 02/07/19 05:00 Est GFR (MDRD) Af Amer > 60 (>60) 02/07/19 05:00 Est GFR (MDRD) Non-Af > 60 (>60) 02/07/19 05:00 Glucose 104 mg/dL (65-99) H 02/07/19 05:00 Calcium 8.7 mg/dL (8.5-10.1) 02/07/19 05:00 Corrected Calcium TNP 02/07/19 05:00 Total Bilirubin 0.20 mg/dL (0.2-1.0) 02/07/19 05:00 AST 9 Units/L (15-37) L 02/07/19 05:00 ALT 8 Units/L (12-78) L 02/07/19 05:00 Alkaline Phosphatase 67 Units/L (46-116) 02/07/19 05:00 Total Protein 6.9 g/dL (6.4-8.2) 02/07/19 05:00 Albumin 3.5 g/dL (3.4-5.0) 02/07/19 05:00 Globulin 3.4 g/dL (2.5-4.5) 02/07/19 05:00 Albumin/Globulin Ratio 1.0 Ratio (1.1-2.1) L 02/07/19 05:00 Amylase 34 Units/L (25-115) 02/07/19 05:00 Lipase 55 Units/L (73-393) L 02/07/19 05:00 Specimen Type Clean catch urine 02/07/19 06:33 Urine Color Pale yellow (YELLOW) 02/07/19 06:33 Urine Appearance Clear (CLEAR) 02/07/19 06:33 Urine pH 6.0 (5.0 - 8.0) 02/07/19 06:33 Ur Specific [place] 1.010 (1.000-1.030) 02/07/19 06:33 Urine Protein Negative (NEGATIVE) 02/07/19 06:33 Urine Glucose (UA) Negative (NEGATIVE) 02/07/19 06:33 Urine Ketones Negative (NEGATIVE) 02/07/19 06:33 Urine Occult Blood Negative (NEGATIVE) 02/07/19 06:33 Urine Nitrite Negative (NEGATIVE) 02/07/19 06:33 Urine Bilirubin Negative (NEGATIVE) 02/07/19 06:33 Urine Urobilinogen Normal (NORMAL) 02/07/19 06:33 Ur Leukocyte Esterase Negative (NEGATIVE) 02/07/19 06:33 Opioid - Opioid Risk Tool Total: 0 Total Score Risk Category: Low Risk - Diagnosis Discharge Problem: Dyspepsia, Hepatic cyst, Hyperglycemia Cholelithiasis Qualifiers: Cholangitis acuity: unspecified acuity Biliary obstruction: without biliary obstruction Abdominal pain Qualifiers: Abdominal location: upper abdomen, unspecified Qualified Code(s): R10.10 - Upper abdominal pain, unspecified Degenerative joint disease Qualifiers: Osteoarthritis type: unspecified - Discharge Plan Disposition: ADMITTED INPATIENT Condition: Stable - Follow ups/Referrals Follow ups/Referrals: QUENTIN HAYNES [Primary Care Provider] - 3 days - Instructions
[2019-02-07] MEDS ORDERED: TORADOL 60 MG VIAL ONE (04:51)
[2019-02-07] MEDS ORDERED: PROTONIX TAB 40 MG ONE (04:51)
[2019-02-07] MEDS ORDERED: LEVSIN/MAALOX/LIDOC VISC ONE (04:51)
[2019-02-07 05:09] LABS: BASOPHILS % (AUTO) 0.2 % (0.2-1.0); EOSINOPHILS # (AUTO) 0.1 x10^3/uL (0.0-0.2); EOSINOPHILS % (AUTO) 0.9 % (0.9-2.9); HEMATOCRIT 42.4 % (36.0-47.0); LYMPHOCYTES # (AUTO) 3.3 X10^3/uL (1.3-2.9); LYMPHOCYTES % (AUTO) 43.3 % (21.0-51.0); MEAN CORPUSCULAR HEMOGLOBIN 28.2 pg (27.0-34.0); MEAN CORPUSCULAR VOLUME 85.4 fL (80.0-100.0); MEAN PLATELET VOLUME 8.8 fL (7.4-11.0); MONOCYTES # (AUTO) 0.5 x10^3/uL (0.3-0.8); MONOCYTES % (AUTO) 6.7 % (0.0-13.0); NEUTROPHILS # (AUTO) 3.7 x10^3/uL (2.2-4.8); NEUTROPHILS % (AUTO) 48.9 % (42.0-75.0); PLATELET COUNT 215 X10^3/uL (150.0-450.0); RED BLOOD COUNT 4.96 X10^6/uL (3.5-5.4); RED CELL DISTRIBUTION WIDTH 13.6 % (11.6-16.5); WHITE BLOOD COUNT 7.7 X10^3/uL (3.6-10.0)
[2019-02-07 05:26] LABS: ALANINE AMINOTRANSFERASE 8 Units/L (12-78); ALBUMIN 3.5 g/dL (3.4-5.0); ALKALINE PHOSPHATASE 67 Units/L (46-116); AMYLASE 34 Units/L (25-115); ASPARTATE AMINO TRANSFERASE 9 Units/L (15-37); BLOOD UREA NITROGEN 9 mg/dL (7-18); CALCIUM 8.7 mg/dL (8.5-10.1); CARBON DIOXIDE 26.5 mmol/L (21-32); CHLORIDE 106 mmol/L (98-107); LIPASE 55 Units/L (73-393); SODIUM 141 mmol/L (136-145); TOTAL PROTEIN 6.9 g/dL (6.4-8.2); eGFR NON BLACK RACES > 60 (>60)
--- NOTE | 2019-02-07 05:37 | CT ---
CT abdomen and pelvis without contrast Indication: Right upper quadrant pain and epigastric pain Comparison: No recent CT Technique: Helical images through the abdomen and pelvis without contrast. Coronal and sagittal reformats provided. Findings: Review of bone windows shows no osseous lesion. Limited images through the lower chest shows no acute abnormality. Abdomen: Scattered hepatic hypodensities are compatible with cyst. Gallstones are seen in the gallbladder. The pancreas, adrenal glands and spleen show no acute abnormality. The stomach and small bowel are normal. No acute colonic abnormality seen. Vasculature shows calcifications. The kidneys show no hydroureteronephrosis or stone Pelvis: The urinary bladder and rectum are normal. Uterus is absent. No adnexal region lesions seen. There is fatty lesion in the right tensor fascia matt. Impression: 1. Dilated gallbladder with gallstones and questionable wall thickening. Acute cholecystitis is not excluded. Recommend ultrasound abdomen 2. Vascular calcifications, spine DJD and right hip lipoma. Reported By:
[2019-02-07 06:39] LABS: BILIRUBIN,URINE NEGATIVE (NEGATIVE); BLOOD/HEMOGLOBIN,URINE NEGATIVE (NEGATIVE); GLUCOSE, URINE NEGATIVE (NEGATIVE); KETONES,URINE NEGATIVE (NEGATIVE); LEUKOCYTE ESTERASE ,URINE NEGATIVE (NEGATIVE); NITRITES,URINE NEGATIVE (NEGATIVE); PROTEIN,URINE NEGATIVE (NEGATIVE); UROBILINOGEN,URINE NORMAL (NORMAL)
[2019-02-07 06:44] LABS: APPEARANCE,URINE CLEAR (CLEAR); COLOR,URINE PALE YELLOW (YELLOW)
[2019-02-07] MEDS ORDERED: ZOSYN VIAL 3.375 GRAMS 3.375 G in NS 100 ML IV + SPIKE MINIBAG* 100 ML IV ONE (07:14)
[2019-02-07] MEDS ORDERED: MORPHINE SULFATE INJ 2 MG INJ IVP PRN (07:17)
[2019-02-07] MEDS ORDERED: PEPCID 20 MG IV PREMIX* 20 MG/50 ML BAG IV PRN (07:17)
[2019-02-07] MEDS ORDERED: ZOFRAN INJ 4 MG VIAL IVP PRN ×2 (07:17→11:46)
[2019-02-07] MEDS ORDERED: NS 100 ML IV + SPIKE MINIBAG* 100 ML ONE (07:18)
[2019-02-07] MEDS ORDERED: ZOSYN VIAL 3.375 GRAMS IV ONE (07:18)
[2019-02-07] MEDS ORDERED: ZOFRAN INJ 4 MG VIAL ONE (08:42)
[2019-02-07] MEDS ORDERED: SUPRANE ONE (08:42)
[2019-02-07] MEDS ORDERED: QUELICIN (OR ANECTINE) ONE (08:42)
[2019-02-07] MEDS ORDERED: DIPRIVAN VIAL ONE (08:42)
[2019-02-07] MEDS ORDERED: NEOSTIGMINE INJ ONE (08:42)
[2019-02-07] MEDS ORDERED: VERSED ONE (08:42)
[2019-02-07] MEDS ORDERED: ROBINUL ONE (08:42)
[2019-02-07] MEDS ORDERED: NORCURON INJ 10 MG VIAL ONE (08:42)
--- NOTE | 2019-02-07 08:58 | RAD ---
Examination: AP chest History: Preop Comparison 07/04/2018 Findings: Continued normal heart size with clear lungs. There is no evidence for mediastinal widening or pleural fluid. Impression: No change; no acute findings. Reported By:
[2019-02-07] MEDS: NS 1/2 + KCL 20 MEQ/L 1,000 ML IV SCH ×4 (09:28→23:37)
[2019-02-07] MEDS ORDERED: BACTROBAN TOPICAL OINT ONE (09:46)
[2019-02-07] MEDS ORDERED: ANCEF 1 GRAM IV PREMIX* 1 G/50 ML BAG IV ONE (09:57)
[2019-02-07] MEDS ORDERED: LR 1000 ML IV 1,000 ML ONE (09:57)
[2019-02-07] MEDS ORDERED: FENTANYL INJ 250 mcg ONE (10:31)
[2019-02-07] MEDS ORDERED: DILAUDID INJ IVP PRN ×2 (11:36→11:46)
--- NOTE | 2019-02-07 11:41 | OR.IMMED ---
Immediate Post-Op Note - Immediate Post-Op Note Pre-Op Diagnosis: acute calculus cholecystitis . Post-Op Diagnosis: acute and chronic calculus cholecystitis . abdominal; adhesion around the GB and umbilicus with several loops of small bowel attached to the abdominal wall . No bowel obstruction . Procedure: laparoscopy , lysis of adhesions , lap fabio . Surgeon/[employer] Brake Coupler: jessica Specimens Removed: GB Drains: NONE Complications: no Condition: Stable
[2019-02-07] MEDS ORDERED: BENADRYL INJ 50 MG VIAL IVP PRN (11:46)
[2019-02-07] MEDS ORDERED: REGLAN INJ 10 MG VIAL IVP PRN (11:46)
[2019-02-07] MEDS ORDERED: PHENERGAN INJ 25 MG IM PRN (11:46)
--- NOTE | 2019-02-07 11:46 | DR.H&P ---
H&P - History & Physical for Day of: H&P Date: 02/07/19 - Chief Complaint Chief Complaint: right side abdominal pain - History of Present Illness History of Present Illness: Patient states she has been having epigastric pain that radiates to the RUQ and to her back with burning for the past month. States she has gone to the emergency room in [place] four times and they told her she had gall stones and to see a surgeon. States she has contacted her doctor, Dr. Sebastian and she was suppose to set her up an appointment with a surgeon but she has not called her back. States she talked with her doctor yesterday about her surgery appointment but they have not made one yet. She she has progblems when she eats and gets full quickly with nausea and had episode of vomiting last week but none recently. States she has had an endoscope and they told her she had an ulcer and she is taking ulcer medicines but she do not know the name of the medicines. She is suppose to be on a special diet. She smokes 1/2 pack cigarettes daily but denies alcohol or drug usage. She denies diarrhea, constipation or guy. States the pain is 10 of 10 at times but presently it is 4 of 10. States the pain is sharp worst in the epigastric area. She denies chest pain or SOB or any recent trauma. Pt had ct abdpelvis in ER revealing Dilated gallbladder with gallstones and questionable wall thickening. Acute cholecystitis is not excluded. Pt was admitted NPO for surgical consult - Past Medical History Past Medical History: Arthritis, CHF, Diabetes, Dyslipidemia, GERD, Hypertension, Hypothyroidism - Past Surgical History Surgical History: Appendectomy, Hysterectomy, Ortho Surgery - Family History Family Medical History: Cancer, Hypertension - Social History Does patient currently use any type of tobacco product: No Have you used tobacco products in the last 12 months: No Type of Tobacco Use: None Does any household member use tobacco: No Alcohol Use: None - Medications Home Medications: No Known Drug Allergies Allergy (Verified 12/15/17 09:36) CONTINUE taking the following medications alendronate 70 mg PO WEEKLY 02/07/19 [History] aspirin 81 mg PO DAILY 02/07/19 [History] atorvastatin 40 mg PO HS 02/07/19 [History] budesonide-formoterol [Symbicort] 2 puff INHALATION BID 02/07/19 [History] carvedilol 6.25 mg PO BID 02/07/19 [History] ezetimibe 10 mg PO DAILY 02/07/19 [History] gabapentin 100 mg PO DIRECTED 02/07/19 [History] hydrochlorothiazide 12.5 mg PO DAILY 02/07/19 [History] levothyroxine 100 mcg PO DAILY 02/07/19 [History] losartan 50 mg PO DAILY 02/07/19 [History] meloxicam 7.5 mg PO DAILY 02/07/19 [History] metformin 500 mg PO DAILY 02/07/19 [History] montelukast 10 mg PO DAILY 02/07/19 [History] nitroglycerin 0.4 mg SUBLINGUAL PRN PRN 02/07/19 [History] omeprazole 40 mg PO DAILY 02/07/19 [History] ondansetron HCl [Zofran] 4 mg PO TID PRN 02/07/19 [History] pantoprazole 40 mg PO DAILY 02/07/19 [History] - Review of Systems Constitutional: Weakness Eyes: No Symptoms Reported ENT: No Symptoms Reported Respiratory: No Symptoms Reported Cardiovascular: No Symptoms Reported Gastrointestinal: Nausea, Vomiting, Abdominal Pain Genitourinary: No Symptoms Reported Musculoskeletal: No Symptoms Reported Skin: No Symptoms Reported Neurological: No Symptoms Reported - Physical Exam Vital Signs: Temperature 97.0 F Pulse Rate [Left] 56 Pulse Rate 57 Respiratory Rate 18 Blood Pressure [Left Arm] 140/64 Blood Pressure [Right Arm] 152/75 Blood Pressure 142/63 O2 Sat by Pulse Oximetry 100 Oriented: Normal Eyes: Normal Ear: Normal Nose: Normal Throat: Normal Respiratory: Clear Throughout Cardiovascular: Normal : Normal Auscultation: Bowel Sounds: Normal Palpation: Normal Tenderness: RUQ Skin: Normal Musculoskeletal: Normal Psychiatric: Anxiety Speech Pattern: Clear, Appropriate - Assessment/Plan (1) Acute cholecystitis Status: Acute (2) GERD (gastroesophageal reflux disease) Status: Chronic Plan: admit NPO, SURGICAL CONSULT. ADMISSON LABS CXR AND EKG. CONFIRM HOME MEDICATION, AM LABS (3) Hypertension Status: Chronic (4) Hypothyroidism Status: Chronic - Allergies Allergies/Adverse Reactions: Allergies Allergy/AdvReac Type Severity Reaction Status Date / Time No Known Drug Allergies Allergy Verified 12/15/17 09:36
[2019-02-07] MEDS ORDERED: D5 1/2 NS 1000 ML 1,000 ML IV SCH (12:00)
[2019-02-07] MEDS ORDERED: NS IRRIGATION 3000 ML ONE (15:12)
[2019-02-07] MEDS ORDERED: STERILE WATER IRRIGATION IR ONE (15:12)
[2019-02-08] MEDS: NS 1/2 + KCL 20 MEQ/L 1,000 ML IV SCH ×2 (02:37→09:53)
[2019-02-08 05:53] LABS: BASOPHILS # (AUTO) 0.1 X10^3/uL (0.0-0.1); EOSINOPHILS # (AUTO) 0.1 x10^3/uL (0.0-0.2); EOSINOPHILS % (AUTO) 1.1 % (0.9-2.9); HEMATOCRIT 37.7 % (36.0-47.0); HEMOGLOBIN 12.5 g/dL (12.0-16.0); LYMPHOCYTES # (AUTO) 2.9 X10^3/uL (1.3-2.9); LYMPHOCYTES % (AUTO) 48.7 % (21.0-51.0); MEAN CORPUSCULAR HEMOGLOBIN 28.1 pg (27.0-34.0); MEAN CORPUSCULAR HGB CONC 33.1 g/dL (33.0-35.0); MONOCYTES # (AUTO) 0.5 x10^3/uL (0.3-0.8); MONOCYTES % (AUTO) 7.6 % (0.0-13.0); NEUTROPHILS # (AUTO) 2.5 x10^3/uL (2.2-4.8); NEUTROPHILS % (AUTO) 41.6 % (42.0-75.0); PLATELET COUNT 181 X10^3/uL (150.0-450.0); RED BLOOD COUNT 4.44 X10^6/uL (3.5-5.4); RED CELL DISTRIBUTION WIDTH 13.6 % (11.6-16.5)
[2019-02-08 06:01] LABS: ALANINE AMINOTRANSFERASE 37 Units/L (12-78); ALBUMIN 2.7 g/dL (3.4-5.0); ALKALINE PHOSPHATASE 67 Units/L (46-116); ASPARTATE AMINO TRANSFERASE 37 Units/L (15-37); BLOOD UREA NITROGEN 6 mg/dL (7-18); CALCIUM 8.1 mg/dL (8.5-10.1); CARBON DIOXIDE 24.7 mmol/L (21-32); CHLORIDE 110 mmol/L (98-107); COR CA(FOR HYPOALB) 9.1 mg/dL (8.5-10.1); CREATININE 0.77 mg/dL (0.55-1.02); SODIUM 142 mmol/L (136-145); TOTAL PROTEIN 5.6 g/dL (6.4-8.2); eGFR NON BLACK RACES > 60 (>60)
[2019-02-08 08:13] VITALS: BMI 31.6
--- NOTE | 2019-02-08 09:27 | DR.PROGNOT ---
Hospital Progress Notes - Progress Note for Day of: Progress Note Date: 02/08/19 - Chief Complaint Chief Complaint: po lap fabio .. doing very well . lab work normal . afebrile . - Past Medical Family Social History Past Med/Fam/Surg Hx: No changes since H&P Allergies: Allergies No Known Drug Allergies Allergy (Verified 12/15/17 09:36) - Review Of Systems ROS: No change since H&P - Vital Signs Vital Signs: Temperature 98.3 F Pulse Rate [Left] 67 Pulse Rate 60 Respiratory Rate 20 Blood Pressure [Left Arm] 119/65 Blood Pressure [Right Arm] 152/75 Blood Pressure 140/64 O2 Sat by Pulse Oximetry 94 - Physical Exam Oriented: Normal Eyes: Normal Ear: Normal Nose: Normal Throat: Normal Cardiovascular: Normal : Normal GI:Auscultation: Normal GI:Palpation: Normal GI: Tenderness: Other (mild incisional tenderness ..) Skin: Normal Musculoskeletal: Normal Psychiatric: Anxiety Mood Description: Calm Speech Pattern: Clear, Appropriate - Laboratory and Diagnostics Result Diagrams: 02/08/19 05:20 02/08/19 05:20 Labs: Laboratory WBC 6.0 X10^3/uL (3.6-10.0) 02/08/19 05:20 RBC 4.44 X10^6/uL (3.5-5.4) 02/08/19 05:20 Hgb 12.5 g/dL (12.0-16.0) 02/08/19 05:20 Hct 37.7 % (36.0-47.0) 02/08/19 05:20 MCV 85.0 fL (80.0-100.0) 02/08/19 05:20 MCH 28.1 pg (27.0-34.0) 02/08/19 05:20 MCHC 33.1 g/dL (33.0-35.0) 02/08/19 05:20 RDW 13.6 % (11.6-16.5) 02/08/19 05:20 Plt Count 181 X10^3/uL (150.0-450.0) 02/08/19 05:20 MPV 9.0 fL (7.4-11.0) 02/08/19 05:20 Neut % (Auto) 41.6 % (42.0-75.0) L 02/08/19 05:20 Lymph % (Auto) 48.7 % (21.0-51.0) 02/08/19 05:20 [place] % (Auto) 7.6 % (0.0-13.0) 02/08/19 05:20 Eos % (Auto) 1.1 % (0.9-2.9) 02/08/19 05:20 Baso % (Auto) 1.0 % (0.2-1.0) 02/08/19 05:20 Neut # (Auto) 2.5 x10^3/uL (2.2-4.8) 02/08/19 05:20 Lymph # (Auto) 2.9 X10^3/uL (1.3-2.9) 02/08/19 05:20 [place] # (Auto) 0.5 x10^3/uL (0.3-0.8) 02/08/19 05:20 Eos # (Auto) 0.1 x10^3/uL (0.0-0.2) 02/08/19 05:20 Baso # (Auto) 0.1 X10^3/uL (0.0-0.1) 02/08/19 05:20 Absolute Nucleated RBC 0.0 /100WBC 02/08/19 05:20 Sodium 142 mmol/L (136-145) 02/08/19 05:20 Corrected Sodium TNP 02/08/19 05:20 Potassium 4.1 mmol/L (3.5-5.1) 02/08/19 05:20 Chloride 110 mmol/L (98-107) H 02/08/19 05:20 Carbon Dioxide 24.7 mmol/L (21-32) 02/08/19 05:20 BUN 6 mg/dL (7-18) L 02/08/19 05:20 Creatinine 0.77 mg/dL (0.55-1.02) 02/08/19 05:20 Est GFR (MDRD) Af Amer > 60 (>60) 02/08/19 05:20 Est GFR (MDRD) Non-Af > 60 (>60) 02/08/19 05:20 Glucose 94 mg/dL (65-99) 02/08/19 05:20 Calcium 8.1 mg/dL (8.5-10.1) L 02/08/19 05:20 Corrected Calcium 9.1 mg/dL (8.5-10.1) 02/08/19 05:20 Total Bilirubin 0.30 mg/dL (0.2-1.0) 02/08/19 05:20 AST 37 Units/L (15-37) 02/08/19 05:20 ALT 37 Units/L (12-78) 02/08/19 05:20 Alkaline Phosphatase 67 Units/L (46-116) 02/08/19 05:20 Total Protein 5.6 g/dL (6.4-8.2) L 02/08/19 05:20 Albumin 2.7 g/dL (3.4-5.0) L 02/08/19 05:20 Globulin 2.9 g/dL (2.5-4.5) 02/08/19 05:20 Albumin/Globulin Ratio 0.9 Ratio (1.1-2.1) L 02/08/19 05:20 Amylase 34 Units/L (25-115) 02/07/19 05:00 Lipase 55 Units/L (73-393) L 02/07/19 05:00 Specimen Type Clean catch urine 02/07/19 06:33 Urine Color Pale yellow (YELLOW) 02/07/19 06:33 Urine Appearance Clear (CLEAR) 02/07/19 06:33 Urine pH 6.0 (5.0 - 8.0) 02/07/19 06:33 Ur Specific [place] 1.010 (1.000-1.030) 02/07/19 06:33 Urine Protein Negative (NEGATIVE) 02/07/19 06:33 Urine Glucose (UA) Negative (NEGATIVE) 02/07/19 06:33 Urine Ketones Negative (NEGATIVE) 02/07/19 06:33 Urine Occult Blood Negative (NEGATIVE) 02/07/19 06:33 Urine Nitrite Negative (NEGATIVE) 02/07/19 06:33 Urine Bilirubin Negative (NEGATIVE) 02/07/19 06:33 Urine Urobilinogen Normal (NORMAL) 02/07/19 06:33 Ur Leukocyte Esterase Negative (NEGATIVE) 02/07/19 06:33 Tissue Pathology To follow 02/07/19 11:03 - Assessment and Plan 1: Post op lap fabio . will d/c and follow in 10 days . low fat diet and change dressing in 2 days , light activities . - Problem Patient Problems: Patient Problems Dyspepsia (Acute) R10.13 Cholelithiasis (Acute) K80.20 Abdominal pain (Acute) R10.9 Hepatic cyst (Acute) K76.89 Hyperglycemia (Acute) R73.9 Degenerative joint disease (Acute) M19.90 Acute cholecystitis (Acute) K81.0
[2019-02-08 09:53] VITALS: BP 151/73
== END 2019-02-08 11:36 | disposition home or self-care (01) ==
LOC: MED/SURG 03:09 → ER 03:09 → MED/SURG 08:14
PROVIDERS: ADMIT Surgery; ATTEND Obstetrics & Gynecology Obstetrics
DX: K76.89 Other specified diseases of liver; R10.10 Upper abdominal pain, unspecified; K80.12 Calculus of gallbladder with acute and chronic cholecystitis without obstruction; E03.8 Other specified hypothyroidism; K82.8 Other specified diseases of gallbladder; I10 Essential (primary) hypertension; E11.65 Type 2 diabetes mellitus with hyperglycemia; M19.90 Unspecified osteoarthritis, unspecified site; R10.13 Epigastric pain; K21.9 Gastro-esophageal reflux disease without esophagitis
CPT/HCPCS: 36415; 71010; 71045; 74176; 80053; 81003; 82150; 83690; 85025; 93005; 94760; 96365; 96367; 96372; 96374; 96375; 99100; 99284; A4216; A4217; A4222; J7030; G0378; J0330; J0690; J1885; J2250; J2405; J2543; J2704; J2710; J3010; J3490; J7050; J7120